=== PATIENT | male | born 2000 | race Native Hawaiian/Other Pacific Islander ===

== ENCOUNTER 2020-03-08 09:31 | Emergency (ER) | payer OTHER ==
[~2020-03-08] VITALS: Ht 177.8 cm; Wt 73.5 kg
[2020-03-08 09:38] VITALS: TEMP 98.9
[2020-03-08 12:18] VITALS: BP 110/74
== END 2020-03-08 11:58 | disposition home or self-care (01) ==
LOC: ED 09:31
DX: S16.1XXA Strain of muscle, fascia and tendon at neck level, initial encounter (principal); S39.012A Strain of muscle, fascia and tendon of lower back, initial encounter; W17.89XA Other fall from one level to another, initial encounter; Y92.89 Other specified places as the place of occurrence of the external cause
CPT/HCPCS: 96372; 99283; J1885

== ENCOUNTER 2021-09-05 09:46 | Outpatient (CLI) | payer OTHER | END 2021-09-05 18:57 | disposition home or self-care (01) | LOC: LAB 09:46 | PROVIDERS: ATTEND Family Medicine | DX: U07.1 COVID-19 (principal); R05.9 Cough, unspecified; R51.9 Headache, unspecified; R11.10 Vomiting, unspecified; Z11.52 Encounter for screening for COVID-19 | CPT/HCPCS: 87635; G2023; U0003 ==